=== PATIENT | male | born 1930 | race Caucasian/White ===

== ENCOUNTER 2016-11-16 11:57 | Observation (INO) | payer OTHER ==
[~2016-11-16] VITALS: Ht 170.2 cm; Wt 61.8 kg
[~2016-11-16 11:57] MED LIST: ARICEPT10 MG PO; ARICEPT5 MG PO; ASPIR 8181 M1 PO; ESSENTIAL DAIL1 EACH PO; FLOMAX0.4 MG PO; PEPCID20 MG PO; PLAVIX75 MG PO; PROPRANOLOL HCL40 MG PO; SIMVASTATIN10 MG PO
[2016-11-16 12:32] LABS: EOSINOPHIL (%) 1.6 % (0-5); EOSINOPHIL COUNT 0.1 K/uL (0-0.3); HEMATOCRIT 43.5 % (38.0-50.0); IMMATURE GRANULOCYTE (%) 0.1 % (0.0-0.7); INSTRUMENT ABS NEUTROPHIL CT 4.9 K/uL; LYMPHOCYTE COUNT 1.3 K/uL (1.0-2.8); MCHC 32.6 G/DL (30.0-36.0); MEAN PLAT.VOLUME 9.5 uM^3 (9.0-12.4); MONOCYTE (%) 5.9 % (3-12); MONOCYTE COUNT 0.4 K/uL (0-0.8); NEUTROPHIL (%) 73.3 % (45-76); NEUTROPHIL COUNT 4.9 K/uL (1.8-6.4); PLATELET COUNT 183 K/uL (156-360); RBC DIS.WIDTH-CV 12.9 % (11.8-14.6); RBC DIS.WIDTH-SD 43.5 % (39-53); RED BLOOD COUNT 4.73 M/uL (4.00-5.50); WHITE BLOOD COUNT 6.8 K/uL (4.1-10.2)
[2016-11-16 12:44] LABS: CHLORIDE 105 mEq/L (99-109); POTASSIUM 4.8 mEq/L (3.7-5.4); SODIUM 142 mEq/L (136-147)
[2016-11-16 12:46] LABS: GLUCOSE 114 mg/dL (70-99)
[2016-11-16 12:47] LABS: ANION GAP 8 MEQ/L (2-14); INTER. NORMALIZED RATIO 1.1; PTT 20.3 (25-32)
[2016-11-16 12:50] LABS: GFR ESTIMATE (CALCULATED) 51 mL/min/
[2016-11-16 12:51] LABS: UREA NITROGEN (BUN) 19 mg/dL (9-23)
[2016-11-16 12:54] LABS: TROP-I INTERPRETATION NEGATIVE; TROPONIN-I < 0.01 ng/mL (0.0-0.30)
[2016-11-16] MEDS ORDERED: FAMOTIDINE20 MG PO (14:03)
[2016-11-16] MEDS ORDERED: INDERAL60 MG PO (14:04)
[2016-11-16 15:38] VITALS: BP 141/67
[2016-11-16 19:12] LABS: TROP-I INTERPRETATION NEGATIVE; TROPONIN-I < 0.01 ng/mL (0.0-0.30)
[2016-11-16 19:56] VITALS: BP 102/58
[2016-11-16 22:57] LABS: INFLUENZA A VIRAL ANTIGEN NEGATIVE; INFLUENZA B VIRAL ANTIGEN NEGATIVE
[2016-11-17 00:12] VITALS: BP 121/73
[2016-11-17 01:20] LABS: TROP-I INTERPRETATION NEGATIVE; TROPONIN-I < 0.01 ng/mL (0.0-0.30)
[2016-11-17 04:00] VITALS: BP 155/72
[2016-11-17 06:24] LABS: ANION GAP 5 MEQ/L (2-14); CHLORIDE 103 MEQ/L (99-109); GFR ESTIMATE (CALCULATED) 51 mL/min/; POTASSIUM 3.9 MEQ/L (3.7-5.4); SAMPLE HEMOLYSIS CHECK 0; SAMPLE ICTERIC CHECK 0; SAMPLE LIPEMIA CHECK 0; SODIUM 141 MEQ/L (136-147); UREA NITROGEN (BUN) 19 mg/dL (9-23)
[2016-11-17 06:31] LABS: GLUCOSE 84 mg/dL (70-99)
[2016-11-17 07:59] VITALS: BP 148/67
== END 2016-11-17 14:15 | disposition home or self-care (01) ==
LOC: EME → EDBD 11:57 → EME 11:57 → 5WEST 13:21 → EDOF 13:21 → 5WEST 15:30
PROVIDERS: Emergency Medicine; Internal Medicine; Physician Assistant Medical
DX: R07.89 Other chest pain (principal); R11.0 Nausea; R00.1 Bradycardia, unspecified; N18.3 Chronic kidney disease, stage 3 (moderate); E78.5 Hyperlipidemia, unspecified; G30.9 Alzheimer's disease, unspecified
CPT/HCPCS: 71010; 80048; 84484; 85025; 85610; 85730; 87502; 93005; 99281; 99284; G0378; J0461; J1644; J2405